=== PATIENT | male | born 1960 | race Caucasian/White ===

== ENCOUNTER → 2018-02-14 | Outpatient (REF) | payer OTHER ==
[~2018-02-14] MED LIST: AUGMENTIN875TAB PO; BABY ASPIRIN81 MG PO; BENZONATATE200 MG PO; CIPRO500 MG PO; CORTISPORIN OTI10 M2 AD; FLUARIX QUADRIV1 IN1 IM; FLUZONE SPLT1 M1 IM; GLIMEPIRIDE4 MG PO; GLYBURIDE2.5 MG PO; JANUVIA100 MG PO; LEVAQUIN500 MG PO; LISINOPRIL5 MG PO; METFORMIN1000 MG PO; NAPRELAN500 MG OR; ONE TOUCH ULTRA 100 SC; PREDNISONE20 MG PO; PROAIR HFA IN; QVAR80 MCG IN; ROCEPHIN 1 GM1 G1 IM; SIMVASTATIN10 MG PO
[2018-02-14 10:50] LABS: HEMATOCRIT 42.1 % (39.0-50.0); IMMATURE GRANULOCYTES 0.6 % (0.0-5.0); MEAN CELL VOLUME 90.9 fL CALC (80.0-100.0); MEAN CORPUSCULAR HGB 30.2 pG CALC (26.0-32.0); MEAN CORPUSCULAR HGB CONC 33.3 g/L CALC (32.0-36.0); NEUT# 4.88 thou/uL (1.82-7.42); RED BLOOD COUNT 4.63 mill/uL (4.70-6.10); RED CELL DISTRI WIDTH 13.2 % (11.5-15.5)
[2018-02-14 11:08] LABS: ALBUMIN 3.4 g/dL (3.2-5.0); ALKALINE PHOSPHATASE 94 u/l (38-126); ANION GAP 13 (6-22 (CALC)); BILIRUBIN, TOTAL 0.4 mg/dL (0.0-1.4); BUN 23 mg/dL (9-20); BUN/CREATININE RATIO 19 (12-20 (CALC)); CALCULATED LDLCHOLESTEROL 72 mg/dL (62-129 (CALC)); CARBON DIOXIDE 23 mmol/l (22-30); CHLORIDE 109 mmol/l (95-108); CHOLESTEROL HDL RATIO 3.5 (<4.4 (CALC)); CREATININE 1.2 mg/dL (0.7-1.3); GFR > 60 ML/MIN (>=60 (CALC)); GFR FOR AFR.AMER. > 60 ML/MIN (>=60 (CALC)); HDL CHOLESTEROL 43 mg/dL (>=40); POTASSIUM 4.7 mmol/l (3.5-5.1); SGOT/AST 12 u/l (17-59); SODIUM 141 mmol/l (137-146); TOTAL CHOLESTEROL 151 mg/dl (0-199); TOTAL PROTEIN 5.9 g/dL (6.3-8.2); TRIGLYCERIDES REFLEX TO dLDL 180 mg/dl (30-149); VLDL CHOLESTROL 36 mg/dl (8-62 (CALC))
== END | disposition home or self-care (01) | DRG 639 ==
LOC: LAB 10:18
PROVIDERS: ATTEND Internal Medicine Geriatric Medicine
DX: E11.9 Type 2 diabetes mellitus without complications (principal); I10 Essential (primary) hypertension

== ENCOUNTER 2019-10-30 14:40 | Observation (INO) | payer OTHER ==
[~2019-10-30] VITALS: Ht 175.3 cm; Wt 147.6 kg
--- NOTE | 2019-10-30 14:45 | NUR ---
PT AMB TO ROOM WITH SLOW STEADY GAIT FOR TRIAGE; PT REFUSED WC
[2019-10-30 15:45] LABS: HEMATOCRIT 42.3 % (39.0-50.0); HEMOGLOBIN 13.9 g/dl (14.0-18.0); IMMATURE GRANULOCYTES 0.4 % (0.0-5.0); MEAN CELL VOLUME 89.6 fL CALC (80.0-100.0); MEAN CORPUSCULAR HGB 29.4 pG CALC (26.0-32.0); MEAN CORPUSCULAR HGB CONC 32.9 g/dL CAL (32.0-36.0); NEUT# 4.04 thou/uL (1.82-7.42); RED BLOOD COUNT 4.72 mill/uL (4.70-6.10)
--- NOTE | 2019-10-30 15:45 | NUR ---
PT RESTING ON STRETCHER; STATES CP IS RESOLVED AT THIS TIME; VSS; PT AND FAMILY ADVISED OF CONTINUED WAIT TIME; WILL CONTINUE TO MONITOR
[2019-10-30] MEDS ORDERED: HYDRALAZINE100 MG PO (15:49)
[2019-10-30] MEDS ORDERED: AMLODIPINE BESYL5 MG PO (15:49)
[2019-10-30] MEDS ORDERED: D3 HIGH POT5000 UNIT PO (15:50)
[2019-10-30 15:52] LABS: ALBUMIN 3.8 g/dL (3.2-5.0); ALKALINE PHOSPHATASE 102 u/l (38-126); ANION GAP 12 (6-22 (CALC)); BILIRUBIN, TOTAL 0.3 mg/dL (0.0-1.4); BUN 47 mg/dL (8-23); BUN/CREATININE RATIO 12 (12-20 (CALC)); CARBON DIOXIDE 22 mmol/l (22-30); CHLORIDE 106 mmol/l (95-108); CREATININE 4.1 mg/dL (0.7-1.3); GFR 15 ML/MIN (>=60 (CALC)); GFR FOR AFR.AMER. 18 ML/MIN (>=60 (CALC)); POTASSIUM 4.8 mmol/l (3.5-5.1); SGOT/AST 15 u/l (19-48); SODIUM 135 mmol/l (137-146); TOTAL PROTEIN 6.8 g/dL (6.3-8.2)
[2019-10-30 16:35] LABS: MYOGLOBIN 74 ng/mL (0 - 121)
--- NOTE | 2019-10-30 16:45 | NUR ---
DR CUELLO AT BEDSIDE TO DISCUSS POC AND FINDINGS AND PLAN FOR ADMISSION
--- NOTE | 2019-10-30 17:45 | NUR ---
DINNER TRAY PROVIDED; PT ADVISED OF CONTINUED WAIT TIME FOR ADMISSION
--- NOTE | 2019-10-30 18:58 | NUR ---
REPORT CALLED TO MAMIE YOU
[2019-10-30 19:39] VITALS: BP 151/78
--- NOTE | 2019-10-30 19:39 | NUR ---
PT ARRIVED TO MED SURG UNIT VIA WC ACCOMPANIED BY ED NURSE. PT APPEARS TO BE IN STABLE CONDITION, NO S/O DISTRESS NOTED. PT IS AMBULATORY AROUND THE ROOM AND HAS A DINNER TRAY WAITING ON HIM, HE IS SITTING DOWN NOW TO EAT. V/S ASSESSED AT THIS TIME AND PT ORIENTED TO THE ROOM, CALL SYSTEM, LIGHTS, AND BED.
--- NOTE | 2019-10-30 19:40 | NUR ---
PATIENT TRANSPORTED TO INPATIENT TREATMENT ROOM BY WHEELCHAIR, NO C/O PAIN OR DISCOMFORT, NO S/S OF DISTRESS NOTED, RESPIRATIONS EVEN AND UNLABORED, PATIENT ABLE TO AMBULATE INDEPENDENTLY TO TRANSFER AND BATHROOM PRIVILEDGES.
--- NOTE | 2019-10-30 20:41 | NUR ---
PT ADMISSION AND ASSESSMENT COMPLETED AT THIS TIME. PT SITTING ON COUCH W/FEET ELEVATED ON CHAIR. PT REPORTS FEELING "BETTER THAN ENTIRE LAST WEEK" AT THIS TIME. LUNG SOUNDS ARE DIMINISHED, DENIES CP/N/V. SAFETY PRECAUTIONS REVIEWED AT THIS TIME. PT VERBALIZED UNDERSTANDING.
[2019-10-30 22:50] VITALS: BP 148/84
[2019-10-31 04:00] VITALS: BP 127/67
[2019-10-31 06:27] LABS: HEMATOCRIT 37.4 % (39.0-50.0); HEMOGLOBIN 12.2 g/dl (14.0-18.0); IMMATURE GRANULOCYTES 0.4 % (0.0-5.0); MEAN CELL VOLUME 91.4 fL CALC (80.0-100.0); MEAN CORPUSCULAR HGB 29.8 pG CALC (26.0-32.0); MEAN CORPUSCULAR HGB CONC 32.6 g/dL CAL (32.0-36.0); NEUT# 4.2 thou/uL (1.82-7.42); RED BLOOD COUNT 4.09 mill/uL (4.70-6.10)
[2019-10-31 06:40] LABS: CREATININE 3.6 mg/dL (0.7-1.3); POTASSIUM 4.6 mmol/l (3.5-5.1)
--- NOTE | 2019-10-31 08:00 | NUR ---
PT IS SITTING IN COUCH WITH NO S/S OF DISTRESS NOTED. TELE IN PLACE. PT DENIES PAIN AT THIS TIME. IVF SITE APPEARS HEALTHY. PT STATED HE FEELS BETTER TODAY. PT DENIES ANY NEEDS AT THIS TIME. CALL LIGHT IN REACH.
[2019-10-31 08:17] VITALS: BP 138/60
[2019-10-31 11:00] VITALS: BP 151/91
--- NOTE | 2019-10-31 12:05 | NUR ---
PT IS EATING HIS LUNCH WITH NO S/S OF DISTRESS NOTED. PT DENIES ANY NEEDS AT THIS TIME. CALL LIGHT IN REACH.
--- NOTE | 2019-10-31 14:07 | NUR ---
Discharge instructions given. Patient verbalizes understanding of same. Discharged in stable condition via Wheelchair to Home with staff. All belongings sent with pt.
== END 2019-10-31 14:07 | disposition home or self-care (01) | DRG 313 ==
LOC: ED 14:40 → ED-I 17:00 → ED 17:08 → ED-I 17:09 → MS2 17:22
PROVIDERS: Emergency Medicine; ADMIT Internal Medicine; ATTEND Internal Medicine
DX: R07.9 Chest pain, unspecified (principal); E11.22 Type 2 diabetes mellitus with diabetic chronic kidney disease; I12.9 Hypertensive chronic kidney disease with stage 1 through stage 4 chronic kidney disease, or unspecified chronic kidney disease; N18.9 Chronic kidney disease, unspecified; Z79.84 Long term (current) use of oral hypoglycemic drugs; Z20.828 Contact with and (suspected) exposure to other viral communicable diseases
CPT/HCPCS: G0378

== ENCOUNTER 2021-08-01 08:35 | Day surgery (SDC) | payer OTHER ==
[~2021-08-01] VITALS: Ht 175.3 cm; Wt 117.9 kg
[~2021-08-01 08:35] MED LIST changes: +AMLODIPINE BESYL5 MG PO; +AURYXIA210 MG PO; +BAYER CHEWABLE81 MG PO; +D3 HIGH POT5000 UNIT PO; +GUANFACINE2 MG PO; +HYDRALAZINE100 MG PO; +HYDRALAZINE50 MG PO; +LABETALOL HYDR200 MG PO; +LIPITOR40 M1 PO; +NIFEDIPINE ER30 M1 PO; +SODIUM BICAR650 MG PO; +TRESIBA FL100 UNIT/M; +[UNRECOGNIZED DRUG - OTHER] PO
[2021-08-01] MEDS ORDERED: BUMETANIDE1 MG PO (08:47)
[2021-08-01] MEDS ORDERED: PERCOCET 5/321 COMBO PO (10:03)
[2021-08-01 13:20] VITALS: BP 126/69
== END 2021-08-01 12:18 | disposition home or self-care (01) | DRG 675 ==
LOC: ORM 08:35
PROVIDERS: ATTEND Surgery
PROC: 0WHG43Z Insertion of Infusion Device into Peritoneal Cavity, Percutaneous Endoscopic Approach (ICD-10-PCS; principal; 2021-08-01)
DX: E11.22 Type 2 diabetes mellitus with diabetic chronic kidney disease (principal); N18.9 Chronic kidney disease, unspecified; Z79.4 Long term (current) use of insulin
CPT/HCPCS: J0131; Q9967

== ENCOUNTER 2022-05-03 07:10 | Day surgery (SDC) | payer OTHER ==
[~2022-05-03] VITALS: Ht 175.3 cm; Wt 122.5 kg
[~2022-05-03 07:10] MED LIST changes: +BUMETANIDE1 MG PO; +CALCITRIOL0.25 MC1 PO; +FOSRENOL1000 MG PO; +LISINOPRIL10 MG PO; +MAGNESIUM 400 M1 TAB PO; +PERCOCET 5/321 COMBO PO
== END 2022-05-03 07:45 | disposition home or self-care (01) | DRG 951 ==
LOC: ORM 07:10
PROVIDERS: ATTEND Surgery
DX: Z12.11 Encounter for screening for malignant neoplasm of colon (principal); N18.6 End stage renal disease; E11.22 Type 2 diabetes mellitus with diabetic chronic kidney disease; Z53.09 Procedure and treatment not carried out because of other contraindication; Z99.2 Dependence on renal dialysis; Z79.4 Long term (current) use of insulin; Z80.0 Family history of malignant neoplasm of digestive organs; Z76.82 Awaiting organ transplant status

== ENCOUNTER 2022-05-04 07:03 | Day surgery (SDC) | payer OTHER ==
[~2022-05-04] VITALS: Ht 175.3 cm; Wt 122.5 kg
[2022-05-04 09:25] VITALS: BP 129/67
== END 2022-05-04 09:10 | disposition home or self-care (01) | DRG 951 ==
LOC: ORM 07:03
PROVIDERS: ATTEND Surgery
PROC: 0DJD8ZZ Inspection of Lower Intestinal Tract, Via Natural or Artificial Opening Endoscopic (ICD-10-PCS; principal; 2022-05-04)
DX: Z12.11 Encounter for screening for malignant neoplasm of colon (principal); K64.8 Other hemorrhoids; N18.6 End stage renal disease; E11.22 Type 2 diabetes mellitus with diabetic chronic kidney disease; Z80.0 Family history of malignant neoplasm of digestive organs; Z79.4 Long term (current) use of insulin; Z99.2 Dependence on renal dialysis; Z76.82 Awaiting organ transplant status

== ENCOUNTER 2023-11-18 22:52 | Emergency (ER) | payer OTHER, MEDICARE ==
[~2023-11-18] VITALS: Ht 175.3 cm; Wt 136.4 kg
[2023-11-18 22:57] VITALS: BP 84/44
[2023-11-18 23:00] VITALS: BP 93/46
[2023-11-18] MEDS ORDERED: SODIUM CHLORIDE 0.9% 1,000 ML IV STA (23:02)
[2023-11-18] MEDS ORDERED: PIPERACILLIN Sodium-Tazobactam 3.375 GM in SODIUM CHLORIDE 0.9% 100 ML IV STA (23:02)
[2023-11-18] MEDS ORDERED: Pantoprazole Sodium 40 MG VIAL (Protonix) IV STA (23:02)
[2023-11-18 23:44] VITALS: BP 77/61
[2023-11-18 23:50] VITALS: BP 102/39
[2023-11-18 23:53] VITALS: BP 92/42
[2023-11-18 23:53] LABS: BASO% 0.1 % (0-3); EOS% 0.3 % (0-8); HEMATOCRIT 30.5 % (39.0-50.0); HEMOGLOBIN 9.9 g/dl (14.0-18.0); IMMATURE GRANULOCYTES 0.8 % (0.0-5.0); LYMPH% 6.2 % (15-41); MEAN CORPUSCULAR HGB 32.4 pG CALC (26.0-32.0); MEAN CORPUSCULAR HGB CONC 32.5 g/dL CAL (32.0-36.0); MONO% 5.6 % (2-13); NEUT# 15.45 thou/uL (1.82-7.42); RED BLOOD COUNT 3.06 mill/uL (4.70-6.10); RED CELL DISTRI WIDTH 13.9 % (11.5-15.5)
[2023-11-18 23:54] LABS: MEAN CELL VOLUME 99.7 fL CALC (80.0-100.0)
[2023-11-18 23:55] VITALS: BP 92/40
[2023-11-19] VITALS (13 sets, daily range): BP systolic 90–106; BP diastolic 37–48
[2023-11-19 00:20] LABS: BILIRUBIN, TOTAL 0.5 mg/dL (0.2-1.3)
[2023-11-19 00:30] LABS: POTASSIUM 3.6 mmol/l (3.5-5.1)
[2023-11-19 00:31] LABS: CREATININE 13.6 mg/dL (0.7-1.3)
[2023-11-19] MEDS ORDERED: SODIUM CHLORIDE 0.9% 1,000 ML IV ONE (00:55)
== END 2023-11-19 01:33 | disposition short-term general hospital (02) | DRG 919 ==
LOC: ED 22:52
PROVIDERS: Family Medicine
DX: T85.71XA Infection and inflammatory reaction due to peritoneal dialysis catheter, initial encounter (principal); K65.8 Other peritonitis; N18.6 End stage renal disease; I12.0 Hypertensive chronic kidney disease with stage 5 chronic kidney disease or end stage renal disease; E11.22 Type 2 diabetes mellitus with diabetic chronic kidney disease; Y83.8 Other surgical procedures as the cause of abnormal reaction of the patient, or of later complication, without mention of misadventure at the time of the procedure; Z99.2 Dependence on renal dialysis; Z95.1 Presence of aortocoronary bypass graft; Z79.4 Long term (current) use of insulin
CPT/HCPCS: J2470

== ENCOUNTER 2024-02-03 15:54 | Emergency (ER) | payer OTHER, MEDICARE ==
[~2024-02-03] VITALS: Ht 175.3 cm; Wt 119.2 kg
[2024-02-03] VITALS (9 sets, daily range): BP systolic 44–108; BP diastolic 28–71
[2024-02-03 16:24] LABS: BASO% 0.7 % (0-3); EOS% 2.5 % (0-8); HEMATOCRIT 44.2 % (39.0-50.0); HEMOGLOBIN 14.3 g/dl (14.0-18.0); IMMATURE GRANULOCYTES 0.5 % (0.0-5.0); LYMPH% 29.4 % (15-41); MEAN CELL VOLUME 99.3 fL CALC (80.0-100.0); MEAN CORPUSCULAR HGB 32.1 pG CALC (26.0-32.0); MEAN CORPUSCULAR HGB CONC 32.4 g/dL CAL (32.0-36.0); MONO% 10.4 % (2-13); NEUT# 6.22 thou/uL (1.82-7.42); NEUT% 56.5 % (42-76); RED BLOOD COUNT 4.45 mill/uL (4.70-6.10); RED CELL DISTRI WIDTH 14.8 % (11.5-15.5)
[2024-02-03] MEDS ORDERED: SODIUM CHLORIDE 0.9% 1,000 ML IV ONE (17:10)
[2024-02-03 17:12] LABS: BILIRUBIN, TOTAL 0.7 mg/dL (0.2-1.3)
[2024-02-03 17:18] LABS: ALBUMIN 4.5 g/dL (3.2-5.0); CREATININE 8.8 mg/dL (0.7-1.3); POTASSIUM 5.2 mmol/l (3.5-5.1); TOTAL PROTEIN 7.9 g/dL (6.3-8.2)
[2024-02-03] MEDS ORDERED: ASPIRIN 81 MG/TAB PO ONE (17:30)
== END 2024-02-03 17:46 | disposition left against medical advice (07) | DRG 312 ==
LOC: ED 15:54
PROVIDERS: Family Medicine
DX: I95.3 Hypotension of hemodialysis (principal); R79.89 Other specified abnormal findings of blood chemistry; E86.0 Dehydration; N18.6 End stage renal disease; I12.0 Hypertensive chronic kidney disease with stage 5 chronic kidney disease or end stage renal disease; E11.22 Type 2 diabetes mellitus with diabetic chronic kidney disease; I25.10 Atherosclerotic heart disease of native coronary artery without angina pectoris; Z99.2 Dependence on renal dialysis; Z79.4 Long term (current) use of insulin; Z95.1 Presence of aortocoronary bypass graft; Z53.29 Procedure and treatment not carried out because of patient's decision for other reasons

== ENCOUNTER 2024-08-03 15:29 | Emergency (ER) | payer MEDICARE, OTHER ==
[~2024-08-03] VITALS: Ht 175.3 cm; Wt 111.0 kg
[2024-08-03] MEDS ORDERED: SODIUM CHLORIDE 0.9% 500 ML IV ONE (15:35)
[2024-08-03 16:25] LABS: BASO% 0.5 % (0-3); EOS% 1.3 % (0-8); IMMATURE GRANULOCYTES 0.5 % (0.0-5.0); LYMPH% 27.3 % (15-41); MEAN CELL VOLUME 98.5 fL CALC (80.0-100.0); MEAN CORPUSCULAR HGB 30.3 pG CALC (26.0-32.0); MEAN CORPUSCULAR HGB CONC 30.8 g/dL CAL (32.0-36.0); MONO% 14.1 % (2-13); NEUT# 5.43 thou/uL (1.82-7.42); NEUT% 56.3 % (42-76); RED BLOOD COUNT 6.13 mill/uL (4.70-6.10); RED CELL DISTRI WIDTH 18.8 % (11.5-15.5)
[2024-08-03 16:32] LABS: HEMOGLOBIN 18.6 g/dl (14.0-18.0)
[2024-08-03 16:36] LABS: HEMATOCRIT 60.4 % (39.0-50.0)
[2024-08-03 16:38] LABS: ALBUMIN 5.1 g/dL (3.2-5.0)
[2024-08-03 16:44] LABS: BILIRUBIN, TOTAL 0.9 mg/dL (0.2-1.3); CREATININE 9.5 mg/dL (0.7-1.3); POTASSIUM 6.5 mmol/l (3.5-5.1); TOTAL PROTEIN 9.3 g/dL (6.3-8.2)
[2024-08-03] MEDS ORDERED: CALCIUM GLUCONATE 1 GM in SODIUM CHLORIDE 0.9% 50 ML IV ONE (16:45)
[2024-08-03] MEDS ORDERED: CALCIUM GLUCONATE 2 GM in SODIUM CHLORIDE 0.9% 100 ML IV ONE (16:45)
[2024-08-03] MEDS ORDERED: DEXTROSE 10% 500 ML BAG IV ONE (16:50)
[2024-08-03] MEDS ORDERED: INSULIN REGULAR (HUMAN) 100 UNIT/ML INJ IV ONE (16:50)
[2024-08-03 17:31] VITALS: BP 106/61
== END 2024-08-03 17:32 | disposition left against medical advice (07) ==
LOC: ED 15:29
PROVIDERS: Family Medicine
DX: I21.4 Non-ST elevation (NSTEMI) myocardial infarction (principal); E87.5 Hyperkalemia; I12.0 Hypertensive chronic kidney disease with stage 5 chronic kidney disease or end stage renal disease; E11.22 Type 2 diabetes mellitus with diabetic chronic kidney disease; N18.6 End stage renal disease; Z99.2 Dependence on renal dialysis; I25.10 Atherosclerotic heart disease of native coronary artery without angina pectoris; Z95.1 Presence of aortocoronary bypass graft; Z95.5 Presence of coronary angioplasty implant and graft; Z79.4 Long term (current) use of insulin; Z53.29 Procedure and treatment not carried out because of patient's decision for other reasons
CPT/HCPCS: J0612